=== PATIENT | female | born 1950 | race Caucasian/White ===

== ENCOUNTER 2019-08-15 14:15 | Inpatient (IN) | payer OTHER, MEDICAID ==
[~2019-08-15] VITALS: Ht 157.5 cm; Wt 132.9 kg
--- NOTE | 2019-08-15 14:20 | NUR ---
Patient to ER bed 02 to gown for evaluation. Side rails up.
--- NOTE | 2019-08-15 14:22 | NUR ---
Patient brought in by ambulance to the ED due to SOB and chest pain that started today. Patient is from [facility]. Denied any fevers, chills, nausea, or vomiting. Patient is alert and oriented x2, speaking in full sentences. VSS, pain level 5/10. Informed of approximate wait time. Instructed to notify ED staff for any changes in condition or worsening of symptoms. Patient verbalized understanding.
[2019-08-15 14:23] VITALS: BP_SYST 123
--- NOTE | 2019-08-15 14:26 | NUR ---
ER Dr. Fairchild at bedside examining patient.
[2019-08-15] MEDS ORDERED: LORazepam 2 MG/ML VIAL IVP ONE (14:30)
--- NOTE | 2019-08-15 14:42 | NUR ---
RT at bedside administering breathing treatment as ordered by Dr. Fairchild. Patient tolerated the treatment well.
[2019-08-15] MEDS ORDERED: FAMO20TA8 PO (14:50)
[2019-08-15] MEDS ORDERED: DILT300C54 PO (14:50)
[2019-08-15] MEDS ORDERED: LORA10TA7 PO (14:50)
[2019-08-15] MEDS ORDERED: SSREG SUBCUT (14:50)
[2019-08-15] MEDS ORDERED: APIX5TAB4 PO (14:50)
[2019-08-15] MEDS ORDERED: DEXT30DR6 EACH EYE (14:50)
[2019-08-15] MEDS ORDERED: DOCU-144 PO (14:50)
[2019-08-15] MEDS ORDERED: INSU100I26 SQ (14:50)
[2019-08-15] MEDS ORDERED: BACI1CAP6 PO (14:50)
[2019-08-15] MEDS ORDERED: ALBU2.5V7 INH (14:50)
[2019-08-15] MEDS ORDERED: MOM PO (14:50)
[2019-08-15] MEDS ORDERED: FURO-150 PO (14:50)
[2019-08-15] MEDS ORDERED: ASPI-1153 PO (14:50)
[2019-08-15] MEDS ORDERED: MAGN400T10 PO (14:50)
--- NOTE | 2019-08-15 14:55 | NUR ---
# 20 gauge angiocath placed to RAC. Use of asceptic technique. Opsite placed over site. Blood return noted. Blood for lab drawn from site. Flushed with 10 cc of normal saline. No evidence of infiltration noted. Patient tolerated well.
--- NOTE | 2019-08-15 15:00 | NUR ---
X-ray tech at bedside as ordered by Dr. Fairchild. Patient tolerated the procedure well.
--- NOTE | 2019-08-15 15:10 | NUR ---
MRSA swabbed and dropped off at the lab.
[2019-08-15] MEDS ORDERED: MORPHINE 2 MG/ML INJ. SYRINGE IVP ONE (15:15)
[2019-08-15] MEDS ORDERED: ONDANSETRON HCL 4 MG/2 ML VIAL IVP ONE (15:15)
--- NOTE | 2019-08-15 15:15 | NUR ---
Administered Ativan IVP as ordered by Dr. Fairchild. Patient tolerated the medication well. See eMAR for details.
[2019-08-15 15:28] LABS: BASOPHILS # (AUTO) 0.1 K/uL (0.0-0.2); LYMPHOCYTES # (AUTO) 0.9 K/uL (1.0-5.5); MEAN CORPUSCULAR VOLUME 79 fL (79.0-98.0); MONOCYTES # (AUTO) 0.9 K/uL (0.0-1.0)
[2019-08-15 15:35] LABS: BASOPHILS % (AUTO) 0.7 % (0.0-2.0); EOSINOPHILS % (AUTO) 0.2 % (0.0-4.0); LYMPHOCYTES % (AUTO) 8.3 % (20.5-51.5); MEAN CORPUSCULAR HEMOGLOBIN 23 pg (27-31); MEAN CORPUSCULAR HGB CONC 29 % (32-36); MONOCYTES % (AUTO) 7.8 % (1.7-9.3); PLATELET COUNT (AUTO) 201 K/uL (130-430); RED BLOOD CELL COUNT(AUTO) 2.25 MIL/uL (4.2-6.2); RED CELL DISTRIBUTION WIDTH 22.7 % (9.0-15.0); WHITE BLOOD COUNT (AUTO) 10.9 K/uL (4.8-10.8)
--- NOTE | 2019-08-15 15:35 | NUR ---
Administered Morphine Sulfate and Zofran IVP as ordered by Dr. Fairchild. Patient tolerated the medication well. See eMAR for details.
[2019-08-15 15:36] LABS: CALCIUM 8.5 mg/dL (8.4-11.0); CREATININE 1.58 mg/dL (0.55-1.30); POTASSIUM 4.2 mmol/L (3.5-5.1)
[2019-08-15 15:39] LABS: INR 1.4 (0.8-1.2); PROTHROMBIN TIME 13.6 SECS (9.5-12.5)
[2019-08-15 15:42] LABS: ALBUMIN 2.5 g/dL (3.4-4.8); TOTAL BILIRUBIN 1.1 mg/dL (0.0-1.0)
[2019-08-15 15:43] LABS: HEMOGLOBIN 5.1 g/dL (12.0-16.0)
[2019-08-15 15:44] LABS: HEMATOCRIT 17.8 % (36-48)
--- NOTE | 2019-08-15 15:57 | NUR ---
Dr. Fairchild at bedside collecting stool specimen for guiac test.
[2019-08-15] MEDS ORDERED: PIPERACILLIN/TAZO 3.375 GM in NS 50 ML IV ONE (16:00)
[2019-08-15] MEDS ORDERED: NACL 0.9% 2,000 ML IV ONE (16:00)
[2019-08-15] MEDS ORDERED: PIPERACILLIN/TAZOBACTAM 3.375 GM/VIAL (ZOSYN) IV ONE (16:34)
--- NOTE | 2019-08-15 16:55 | NUR ---
Consent obtained over the phone from Niurka Matos (sister). Blood requistion form dropped off at the lab.
[2019-08-15] MEDS ORDERED: LORazepam 2 MG/ML VIAL IVP PRN (17:15)
[2019-08-15] MEDS ORDERED: MAGNESIUM SULFATE 50 ML IV PRN (17:15)
[2019-08-15] MEDS ORDERED: POTASSIUM CHLORIDE 20 MEQ TAB.PRT.SR PO PRN (17:15)
[2019-08-15] MEDS ORDERED: ALBUTEROL SULFATE 0.083% 2.5 MG/3 ML VIAL.NEB INH PRN (17:15)
[2019-08-15] MEDS ORDERED: ACETAMINOPHEN 325 MG TABLET PO PRN (17:15)
[2019-08-15] MEDS ORDERED: D5NS 1,000 ML IV SCH ×2 (17:15→17:30)
[2019-08-15] MEDS ORDERED: ONDANSETRON HCL 4 MG/2 ML VIAL IVP PRN (17:15)
[2019-08-15] MEDS ORDERED: MORPHINE 2 MG/ML INJ. SYRINGE IVP PRN ×2 (17:15)
[2019-08-15] MEDS ORDERED: ZOLPIDEM TARTRATE 5 MG TABLET PO PRN (17:15)
[2019-08-15] MEDS ORDERED: DOCUSATE SODIUM 100 MG CAPSULE PO PRN (17:15)
[2019-08-15] MEDS ORDERED: PIPERACILLIN/TAZOBACTAM 2.25 GM in NS 50 ML IV SCH (17:15)
--- NOTE | 2019-08-15 17:15 | NUR ---
Dr. Ayala ([employer]) at bedside.
[2019-08-15] MEDS: FUROSEMIDE 40 MG/4 ML VIAL IVP SCH (17:30)
--- NOTE | 2019-08-15 17:30 | NUR ---
rECEIVED ADMITTING ORDERS FROM DR. REMY.
--- NOTE | 2019-08-15 17:30 | NUR ---
# 16 FR In and Out catheter with use of sterile technique. Immediate return of 120 ml clear yellow with foul-smelling odor urine noted. Urine sample collected and sent to lab. Pt tolerated procedure well. Patient unable to toilet self.
[2019-08-15] MEDS ORDERED: NACL 0.9% 1,000 ML IV SCH (17:41)
[2019-08-15] MEDS ORDERED: PIPERACILLIN/TAZO 3.375/DEX-IS 50 ML IV SCH (18:00)
--- NOTE | 2019-08-15 18:30 | NUR ---
Started blood transfusion. VS: 122/46 - 121, RR 23, T 97.5.
[2019-08-15 18:57] VITALS: BP_SYST 162
--- NOTE | 2019-08-15 19:11 | NUR ---
ER Dr. Monaco at bedside examining patient.
--- NOTE | 2019-08-15 19:25 | NUR ---
Report given and care transferred to ESDRAS Ness.
--- NOTE | 2019-08-15 20:45 | NUR ---
# 16 FR Pope catheter with use of sterile technique. Immediate return of 150 cc o yellow urine noted. Bedside drainage bag placed below level of bladder. Pt tolerated procedure well.
[2019-08-15] MEDS ORDERED: DILTIAZEM HCL 300 MG CAP.SR.24H PO SCH (21:00)
[2019-08-15] MEDS ORDERED: VANCOMYCIN HCL 1 GM/NS PREMIX 250 ML IV ONE (21:00)
[2019-08-15] MEDS ORDERED: MUPIROCIN 2% TOPICAL OINTMENT 22 GM TP ONE (21:00)
--- NOTE | 2019-08-15 21:15 | NUR ---
Called ICU for bed placement.
--- NOTE | 2019-08-15 21:30 | NUR ---
Sister at bedside.
--- NOTE | 2019-08-15 22:10 | NUR ---
RT at bedside suctioning pt.
--- NOTE | 2019-08-15 22:40 | NUR ---
Transfer to ICU bed 3 via ACLS protocol. Licensed nurse present. IV present no signs or symptoms of infiltration.
[2019-08-15 23:10] VITALS: BP_SYST 147
--- NOTE | 2019-08-15 23:10 | NUR ---
Admission Note Pt in bed alert, but lethargic. Able to open eyes to voice, but unable to speak or follow commands. Pt uncontrolled A-fib on the monitor. Trach to vent. AC 20, 400, 40%. +6. Pt tolerating well. Agonal breathing noted. RAC 20g and RFA22g noted. IV sites C/D/I. No s/s of infiltration noted. Pt has hamilton catheter in place draining urine to gravity. Safety rounds completed. No family at bedside. Will continue to monitor.
[2019-08-15] MEDS: INSULIN GLARGINE 100 UNITS/ML 10 ML VIAL SUBCUT SCH (23:30)
[2019-08-15] MEDS: DOCUSATE SODIUM 100 MG CAPSULE PO SCH (23:30)
--- NOTE | 2019-08-15 23:35 | NUR ---
CHG CHG bath given and linens changed. Pt tolerated well. Will continue to monitor.
[2019-08-16] VITALS (28 sets, daily range): BP systolic 65–198
[2019-08-16] MEDS ORDERED: VANCOMYCIN HCL 1000 MG/VIAL IV ONE (00:12)
[2019-08-16] MEDS ORDERED: PIPERACILLIN/TAZOBACTAM 2.25 GM VIAL IV ONE (00:13)
[2019-08-16] MEDS ORDERED: MORPHINE 4 MG/ML INJ. SYRINGE ONE (00:28)
[2019-08-16] MEDS: PIPERACILLIN/TAZOBACTAM 2.25 GM in NS 50 ML IV SCH ×5 (00:36→21:16)
--- NOTE | 2019-08-16 02:00 | NUR ---
BT Initiation: Consent signed per agreeing to administration of blood. Blood has been type and crossmatched. Blood sent from blood bank. Information on unit of blood checked against patient wristband at bedside by two nurses. All information matches. Patient or responsible green party informed of potential complications associated with blood transfusion. Informed of possible transfusion reaction symptoms. Aware of need to notify nurse at once of itching, shortness of breath, flushing, feeling of impending doom, or other symptoms not previously present. Vital signs taken within 5 minutes prior to initiation of transfusion. RN will remain with patient for first 15 minutes of transfusion at which time vital signs will be re-assessed.
[2019-08-16] MEDS ORDERED: METOPROLOL TARTRATE 5 MG/5 ML VIAL IVP PRN (02:30)
[2019-08-16] MEDS ORDERED: NOREPINEPHRINE 4 MG/4 ML VIAL IV ONE ×2 (02:42→23:36)
[2019-08-16] MEDS: NOREPINEPHRINE BITARTRATE 4 MG in NS 246 ML IV PRN ×5 (02:53→21:17)
--- NOTE | 2019-08-16 02:59 | NUR ---
RN Rounds Pt in bed, lethargic, Blood infusing, tolerating well. Pt started on Levophed drip @2mcg/min for lowered BP. Will continue to monitor.
--- NOTE | 2019-08-16 04:28 | NUR ---
BT Done BT finished infusing, Pt tolerated well. No s/s of reaction noted. Pt VSS. BP in the 90s. Levophed @6mcg/min. Pt set to have one more unit of pRBCs transfused as ordered. Will continue to monitor.
[2019-08-16] MEDS: DILTIAZEM HCL 30 MG TABLET PO SCH ×4 (06:00→23:33)
[2019-08-16 06:16] LABS: HEMATOCRIT 27.8 % (36-48); HEMOGLOBIN 7.9 g/dL (12.0-16.0); MEAN CORPUSCULAR HEMOGLOBIN 25 pg (27-31); MEAN CORPUSCULAR HGB CONC 29 % (32-36); MEAN CORPUSCULAR VOLUME 86 fL (79.0-98.0); PLATELET COUNT (AUTO) 188 K/uL (130-430); RED BLOOD CELL COUNT(AUTO) 3.22 MIL/uL (4.2-6.2); WHITE BLOOD COUNT (AUTO) 29.6 K/uL (4.8-10.8)
--- NOTE | 2019-08-16 06:50 | NUR ---
BT INITIATION: Consent signed per Sister via Phone consent agreeing to administration of blood. Blood has been type and crossmatched. Blood sent from blood bank. Information on unit of blood checked against patient wristband at bedside by two nurses. All information matches. Patient or responsible constitution party informed of potential complications associated with blood transfusion. Informed of possible transfusion reaction symptoms. Aware of need to notify nurse at once of itching, shortness of breath, flushing, feeling of impending doom, or other symptoms not previously present. Vital signs taken within 5 minutes prior to initiation of transfusion. RN will remain with patient for first 15 minutes of transfusion at which time vital signs will be re-assessed.
[2019-08-16 06:59] LABS: INR 1.6 (0.8-1.2); PROTHROMBIN TIME 15.6 SECS (9.5-12.5)
--- NOTE | 2019-08-16 07:25 | NUR ---
Endorsement Report given to oncoming RN at bedside via SBAR approach. Patient safety rounds completed. Levophed infusing @10mcg/min. No acute distress noted.
[2019-08-16 08:20] LABS: TOTAL IRON BIND. CAPACITY 328 ug/dL (250-450)
[2019-08-16] MEDS ORDERED: VANCOMYCIN HCL 1,500 MG in NS 500 ML IV ONE (08:30)
--- NOTE | 2019-08-16 08:35 | NUR ---
RT NOTES- VT 450 INCREASED TIDAL VOLUME TO 450ml AT THIS TIME PER DR. LAWTON. RN MUNIR AND ESDRAS MCKEON MADE AWARE. WILL CONTINUE MONITORING.
[2019-08-16 08:45] LABS: POTASSIUM 4.7 mmol/L (3.5-5.1); SODIUM SERUM 129 mmol/L (136-145)
[2019-08-16 08:46] LABS: ANION GAP 19 (5-15); CHLORIDE 95 mmol/L (98-107)
[2019-08-16 08:47] LABS: CALCIUM 8.7 mg/dL (8.4-11.0); CREATININE 2.17 mg/dL (0.55-1.30); GFR AFRICAN AMERICAN 29 mL/min (>90); GLUCOSE 130 mg/dL (70-99); UREA NITROGEN, BLOOD 24 mg/dL (8-21)
[2019-08-16 08:48] LABS: ALANINE AMINOTRANSFERASE 37 U/L (12-78); ALBUMIN 2.5 g/dL (3.4-4.8); ASPARTATE AMINOTRANSFERASE 102 U/L (10-37); TOTAL BILIRUBIN 2.2 mg/dL (0.0-1.0)
[2019-08-16 08:49] LABS: CHOLESTEROL 73 mg/dL (<200); HDL CHOLESTEROL 16 mg/dL (>55); LDL CHOLESTEROL 49 mg/dL (<100); TRIGLYCERIDES 83 mg/dL (30-150)
[2019-08-16] MEDS ORDERED: FUROSEMIDE 20 MG TABLET PO SCH (09:00)
[2019-08-16] MEDS: MUPIROCIN 2% TOPICAL OINTMENT 22 GM NS SCH ×2 (09:00→21:00)
[2019-08-16] MEDS: DOCUSATE SODIUM 100 MG CAPSULE PO SCH ×2 (09:00→21:00)
[2019-08-16 09:08] LABS: INR 2.1 (0.8-1.2); PROTHROMBIN TIME 20.7 SECS (9.5-12.5)
[2019-08-16] MEDS: PANTOPRAZOLE SODIUM 40 MG/VIAL (PROTONIX) IVP SCH ×2 (09:29→21:16)
[2019-08-16] MEDS: FUROSEMIDE 40 MG/4 ML VIAL IVP SCH (09:30)
[2019-08-16 09:41] LABS: BAND % (MANUAL) 7 % (0-6); LYMPHOCYTES % (MANUAL) 4 % (20-46)
[2019-08-16 09:42] LABS: BASOPHILS % (MANUAL) 0 % (0-2); EOSINOPHILS % (MANUAL) 0 % (0-7); MONOCYTES % (MANUAL) 6 % (0-11)
[2019-08-16] MEDS ORDERED: INSULIN REGULAR, HUMAN 100 UNITS/ML, 10 ML VIAL (humuLIN R) SUBCUT PRN (09:45)
[2019-08-16] MEDS ORDERED: HYDROCORTISONE SOD SUCC 100 MG/2 ML VIAL IVP ONE (09:45)
--- NOTE | 2019-08-16 10:14 | NUR ---
Nutrition Update Daniel Scale 12 noted. Pt admitted for aspiration pneumonia. Diet: [facility] BMI: 53.5 kg/m2 RD to follow per nutrition care standards.
[2019-08-16 12:01] LABS: THYROID STIMULATING HORMONE 1.02 uIu/mL (0.36-3.74)
--- NOTE | 2019-08-16 12:17 | NUR ---
SS NOTES: SANITATION MANAGER was referred by CM to see patient for DCP/SSA. Demographic information confirmed and updated. SANITATION MANAGER met patient who was unable to be interviewed but sister (JASWINDER Bah ([phone]) was at bedside. Per Niurka, pt has been a resident at [facility] for 7-8 years now and is dependent on all her ADL's. Niurka stated pt has an advanced directive and she is the surrogate decision maker on healthcare and for her finances. Pt does not have a history of mental health but has a long history of alcohol intake. Pt has two children, one and the other one Luis Brody is in long term. When discharged, family would want pt to go back to [facility]. No SS needs identified at this time, but will remain available for support. SANITATION MANAGER provided family with SS call card.
--- NOTE | 2019-08-16 13:47 | NUR ---
Dietitian Recommendations * Recommend NPO * Consider swallow eval if/when medically appropriate LP, RD Please refer to Nutrition Assessment for details. Addendum: 08/16/19 at [address] Amended: Links added.
--- NOTE | 2019-08-16 15:35 | NUR ---
RT NOTES- PRESSURE CONTROL PT PLACED ON PC RATE 20, PIP 32, PEEP 6, 40%FIO2 PER DR. LAWTON. RN MADE AWARE. WILL CONTINUE MONITORING.
--- NOTE | 2019-08-16 16:27 | NUR ---
CONSULT NEPHRO. CONSULTING MD: DR. NICHOLAS DIALED: [phone] SPOKE TO: DEVIN ORDERED BY: DR. REMY
[2019-08-16] MEDS ORDERED: SODIUM BICARBONATE 8.4% JECT 50 MEQ/50 ML SYRINGE IVP ONE ×2 (17:00→17:15)
[2019-08-16] MEDS ORDERED: LEVOFLOXACIN 250 MG/D5W 50 ML IV SCH (17:00)
--- NOTE | 2019-08-16 17:00 | NUR ---
RT NOTES- AC 20 CHANGE VENT SETTING BACK AC20, 450, +6, 40%FIO2 PER DR. LAWTON AT THIS TIME. ESDRAS AMARAL AND ESDRAS MCKEON MADE AWARE. WILL CONTINUE MONITORING.
[2019-08-16] MEDS ORDERED: SODIUM BICARBONATE 8.4% JECT 50 MEQ/50 ML SYRINGE ONE ×2 (17:16→17:26)
[2019-08-16] MEDS ORDERED: NACL 0.9% 1,000 ML IV ONE (17:45)
[2019-08-16 17:46] LABS: FIBRINOGEN 256 mg/dL (200-400)
[2019-08-16] MEDS: SODIUM BICARBONATE 8.4% VIAL 150 MEQ in D5W 1,000 ML IV SCH (18:57)
[2019-08-16] MEDS: PHENYLEPHRINE HCL 30 MG in NS 247 ML IV PRN ×4 (18:59→23:32)
--- NOTE | 2019-08-16 19:00 | NUR ---
THE PTS STATUS WAS VERY TENUOUS THROUGHOUT THE DAY. SHE WAS NOT ON SEDATION AND OBTUNDED. SHE WAS REQUIRING LEVOPHED FOR BP SUPPORT THROUGHOUT THE DAY. SHE ACIDOTIC (GAVE BICARB) AND LATER IN THE DAY WE DID GET A PICC LINE PLACED LATE IN THE DAY. SHE WAS SO DIFFICULT TO GET A NBP - WE TRIED VARIOUS WAYS AND LOCATIONS FOR ALMOST AN HOUR , TO NO AVAIL. WE DID CHECK HER PULSE BY DOPPLER AND IT WAS LOUD AND CLEAR. (STILL NO NBP) WE STARTED NEOSYNEPHRINE WELL. SHE IS WARM AND MOVES HER UPPER EXTREMITES ABOUT PERIODICALLY. SEE ORDERS.
--- NOTE | 2019-08-16 19:30 | NUR ---
PM ASSESSMENT REPORT RECEIVED FROM MUNIR DEWITT. PT RECEIVED IN BED WITH EYES CLOSED, NON RESPONSIVE. PT TRACH TO VENT, SETTINGS: AC 20, TV 450, FIO2 40%, PEEP 6. A-FIB ON MONITOR. ETELVINA PICC IN PLACE INFUSING LEVOPHED DRIP, NEOSYNEPHRINE, AND IVF. RAC 20G INFUSING IVF WITH SODIUM BICARB. BOTH IV SITES PATENT AND INTACT. CASTRO CATH IN PLACE DRAINING BRO URINE TO GRAVITY. HOB ELEVATED, BED IN LOWEST POSITION, CALL LIGHT IN REACH. WILL CONTINUE TO MONITOR PT.
[2019-08-16] MEDS ORDERED: PHENYLEPHRINE HCL 10 MG/ML VIAL (NEOSYNEPHRINE) ONE (20:30)
[2019-08-16] MEDS: INSULIN GLARGINE 100 UNITS/ML 10 ML VIAL SUBCUT SCH (21:00)
[2019-08-16] MEDS: metroNIDAZOLE 500 mg/NS 100 ML IV SCH (21:16)
[2019-08-16] MEDS: HYDROCORTISONE SOD SUCC 100 MG/2 ML VIAL IVP SCH (21:17)
--- NOTE | 2019-08-16 21:20 | NUR ---
PRIEST SHORT AT BEDSIDE FOR PRAYER AT THIS TIME. WILL CONTINUE TO MONITOR PT.
--- NOTE | 2019-08-16 22:54 | NUR ---
DR. JERED TRAYLOR UPDATED ON PT CONDITION AT THIS TIME. MADE AWARE THAT PT ON MAX DOSE OF LEVOPHED AND NEOSYNEPHRINE AT THIS TIME WITH BP REMAINING IN LOW 70s AND FLUCTUATING. PER OK TO DOUBLE CONCENTRATE LEVOPHED DRIP, OTHERWISE NO NEW ORDERS RECEIVED. WILL CONTINUE TO MONITOR PT. Addendum: 08/17/19 at 0127 by María Campbell RN MADE AWARE THAT BP IS DIFFICULT TO OBTAIN, PER MD NO ADDITIONAL ORDERS. WILL CONTINUE TO MONITOR PT.
[2019-08-16] MEDS: NOREPINEPHRINE BITARTRATE 8 MG in NS 242 ML IV PRN (23:31)
[2019-08-17] VITALS: BP_SYST 107
[2019-08-17] MEDS ORDERED: PHENYLEPHRINE HCL 10 MG/ML VIAL (NEOSYNEPHRINE) ONE ×6 (00:58→07:14)
[2019-08-17 01:00] VITALS: BP_SYST 148
[2019-08-17] MEDS: PHENYLEPHRINE HCL 30 MG in NS 247 ML IV PRN ×3 (01:04→05:25)
[2019-08-17 02:00] VITALS: BP_SYST 112
[2019-08-17] MEDS: SODIUM BICARBONATE 8.4% VIAL 150 MEQ in D5W 1,000 ML IV SCH ×2 (02:06→08:57)
--- NOTE | 2019-08-17 03:45 | NUR ---
VENT CHANGES FIO2 INCREASED TO 100% BY RT AT THIS TIME. WILL CONTINUE TO MONITOR PT.
[2019-08-17] MEDS: PIPERACILLIN/TAZOBACTAM 2.25 GM in NS 50 ML IV SCH (03:57)
[2019-08-17 05:00] VITALS: BP_SYST 196
[2019-08-17] MEDS: NOREPINEPHRINE BITARTRATE 8 MG in NS 242 ML IV PRN (05:26)
[2019-08-17] MEDS: DILTIAZEM HCL 30 MG TABLET PO SCH (06:00)
[2019-08-17] MEDS: metroNIDAZOLE 500 mg/NS 100 ML IV SCH (06:10)
[2019-08-17 06:15] LABS: CALCIUM 7.7 mg/dL (8.4-11.0); CREATININE 2.89 mg/dL (0.55-1.30); POTASSIUM 5.1 mmol/L (3.5-5.1)
[2019-08-17] MEDS ORDERED: DEXTROSE 50% JECT 50 ML DISP.SYRIN ONE (06:24)
--- NOTE | 2019-08-17 06:30 | NUR ---
BLOOD GLUCOSE BLOOD GLUCOSE 56. D 50 GIVEN PER PROTOCOL. BG RECHECKED AFTER 15 MINS AND IS 120. WILL CONTINUE TO MONITOR PT.
[2019-08-17 06:40] LABS: CORRECTED WHITE BLOOD COUNT 25.2 K/uL (4.5-11.0); RED BLOOD CELL COUNT(AUTO) 2.72 MIL/uL (4.2-6.2); WHITE BLOOD COUNT (AUTO) 23.2 K/uL (4.8-10.8)
[2019-08-17 06:42] LABS: HEMATOCRIT 25.2 % (36-48); HEMOGLOBIN 6.8 g/dL (12.0-16.0); MEAN CORPUSCULAR HEMOGLOBIN 25 pg (27-31); MEAN CORPUSCULAR HGB CONC 27 % (32-36); MEAN CORPUSCULAR VOLUME 93 fL (79.0-98.0)
[2019-08-17 06:43] LABS: BASOPHILS # (AUTO) 0.1 K/uL (0.0-0.2); BASOPHILS % (AUTO) 0.6 % (0.0-2.0); EOSINOPHILS # (AUTO) 0.5 K/uL (0.0-0.4); EOSINOPHILS % (AUTO) 2.3 % (0.0-4.0); LYMPHOCYTES # (AUTO) 1.1 K/uL (1.0-5.5); LYMPHOCYTES % (AUTO) 4.9 % (20.5-51.5); MONOCYTES # (AUTO) 1.7 K/uL (0.0-1.0); MONOCYTES % (AUTO) 7.3 % (1.7-9.3); NEUTROPHILS # (AUTO) 19.7 K/uL (1.8-7.7); NEUTROPHILS % (AUTO) 84.9 % (40.0-70.0); PLATELET COUNT (AUTO) 204 K/uL (130-430)
--- NOTE | 2019-08-17 06:46 | NUR ---
DR. SANDRITA TRAYLOR MADE AWARE OF PT HGB 6.8 AND PT IS POSITIVE FOR INFLUENZA A. PER MD TRANSFUSE 1 UNIT PRBCs, INSERT NGT, AND PLACE PT ON TAMIFLU 75 MG BID FOR 5 DAYS. WILL CARRY OUT ORDERED.
--- NOTE | 2019-08-17 07:05 | NUR ---
DR. ROSEMARY TRAYLOR AT BEDSIDE TO EVALUATE PT. NO NEW ORDERS RECEIVED AT THIS TIME. WILL CONTINUE TO MONITOR PT.
--- NOTE | 2019-08-17 07:29 | NUR ---
ENDORSEMENT BEDSIDE REPORT GIVEN TO [facility] RN USING SBAR APPROACH.
[2019-08-17 07:30] VITALS: BP_SYST 172
--- NOTE | 2019-08-17 07:30 | NUR ---
AM NOTES: REPORT RECEIVED FROM ELIO. PT RECEIVED IN BED WITH EYES CLOSED, NON RESPONSIVE.LEFT EYE BLIND, RIGHT FIXED, DILATED. PT TRACH TO VENT, SETTINGS: AC 20, TV 450, FIO2 100%, PEEP 6. A-FIB ON MONITOR.UNABLE TO GET BLOOD PRESSURE READING. ETELVINA PICC IN PLACE INFUSING LEVOPHED DRIP 30 MCG/KG/MIN, NEOSYNEPHRINE @ 360ML/HR, . RAC 20G INFUSING IVF WITH SODIUM BICARB@ 150ML/HR .RIGHT FOREARM #22. SALINE LOCK. PATENT,INTACT. CASTRO CATH IN PLACE DRAINING BRO COLOR AT THE BAG TO GRAVITY. HOB ELEVATED, BED IN LOWEST POSITION, BE IS LOW AND LOCK POSITION. WILL CONTINUE TO MONITOR PT.
--- NOTE | 2019-08-17 07:49 | NUR ---
CARDIO CONSULT: SEEN BY DR. POLANCO UPDATED ABOUT PATIENT CURRENT CONDITION. STATED WILL PLACE ORDER FOR ALBUMIN.
[2019-08-17] MEDS ORDERED: ALBUMIN HUMAN 25% 50 ML IV SCH (08:00)
--- NOTE | 2019-08-17 08:00 | NUR ---
pulmo consult: seen by DR. Ayala, updated patient current condition aware about the ABG result.
[2019-08-17] MEDS ORDERED: NOREPINEPHRINE 4 MG/4 ML VIAL IV ONE (08:34)
--- NOTE | 2019-08-17 08:38 | NUR ---
INFORMED MD'S PATIENT : DR. REMY SPOKE TO GINNY DIALED [phone] DR. NICHOLAS SPOKE TO GLORY DIALED [phone] PAIGE SPOKE TO GLORY DIALED [phone] DR. RILEY SPOKE TO GLORY DIALED [phone] DR. POLANCO SPOKE TO GLORY DIALED [phone]
--- NOTE | 2019-08-17 08:57 | NUR ---
0815-heart rate drop to 50bpm. primary nurse and respiratory therapies at the bedside checking and doing intervention.pt on maximum vasopressor. 0818 patient become pulseless, code blue called. 0819 DR. Dell Ayala pronounced time of . MD Ayala notified family- sister ( Niurka Matos) [phone]. [employer] notified case # [id number], s/w betty stated not eligible for organ donation.
[2019-08-17] MEDS ORDERED: OSELTAMIVIR PHOSPHATE 75 MG CAPSULE PO SCH (09:00)
[2019-08-17] MEDS: DOCUSATE SODIUM 100 MG CAPSULE PO SCH (09:00)
[2019-08-17] MEDS: FUROSEMIDE 40 MG/4 ML VIAL IVP SCH (09:00)
[2019-08-17] MEDS: MUPIROCIN 2% TOPICAL OINTMENT 22 GM NS SCH (09:00)
[2019-08-17] MEDS: PANTOPRAZOLE SODIUM 40 MG/VIAL (PROTONIX) IVP SCH (09:00)
[2019-08-17] MEDS: HYDROCORTISONE SOD SUCC 100 MG/2 ML VIAL IVP SCH (09:00)
--- NOTE | 2019-08-17 10:45 | NUR ---
POST MORTEM CARE PROVIDED. NAME TAG PLACED OUTSIDE BAG AND PT TOE. 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
== END 2019-08-17 08:19 | disposition expired | DRG 871 ==
LOC: SED 14:15 → SIC 17:41
PROVIDERS: ADMIT General Practice; ATTEND General Practice
PROC: 30233N1 Transfusion of Nonautologous Red Blood Cells into Peripheral Vein, Percutaneous Approach (ICD-10-PCS; principal; 2019-08-15)
PROC: 5A1945Z Respiratory Ventilation, 24-96 Consecutive Hours (ICD-10-PCS; 2019-08-15)
PROC: 02HV33Z Insertion of Infusion Device into Superior Vena Cava, Percutaneous Approach (ICD-10-PCS; 2019-08-15)
PROC: B548ZZA Ultrasonography of Superior Vena Cava, Guidance (ICD-10-PCS; 2019-08-15)
DX: A41.9 Sepsis, unspecified organism (principal); J15.9 Unspecified bacterial pneumonia; J69.0 Pneumonitis due to inhalation of food and vomit; J96.21 Acute and chronic respiratory failure with hypoxia; R65.21 Severe sepsis with septic shock; N17.0 Acute kidney failure with tubular necrosis; E43 Unspecified severe protein-calorie malnutrition; K27.4 Chronic or unspecified peptic ulcer, site unspecified, with hemorrhage; E66.2 Morbid (severe) obesity with alveolar hypoventilation; I48.20 Chronic atrial fibrillation, unspecified; E87.2 Acidosis; J44.0 Chronic obstructive pulmonary disease with (acute) lower respiratory infection; Z99.11 Dependence on respirator [ventilator] status; Z68.43 Body mass index [BMI] 50.0-59.9, adult; J91.8 Pleural effusion in other conditions classified elsewhere; N18.4 Chronic kidney disease, stage 4 (severe); K21.9 Gastro-esophageal reflux disease without esophagitis; D64.9 Anemia, unspecified; E11.22 Type 2 diabetes mellitus with diabetic chronic kidney disease; E11.42 Type 2 diabetes mellitus with diabetic polyneuropathy; I46.9 Cardiac arrest, cause unspecified; E11.65 Type 2 diabetes mellitus with hyperglycemia; D50.0 Iron deficiency anemia secondary to blood loss (chronic); I50.9 Heart failure, unspecified; Y95 Nosocomial condition; Z74.01 Bed confinement status; Z79.01 Long term (current) use of anticoagulants; Z79.4 Long term (current) use of insulin; Z87.891 Personal history of nicotine dependence; Z93.0 Tracheostomy status; Z79.82 Long term (current) use of aspirin; Z79.899 Other long term (current) drug therapy; Z91.19 Patient's noncompliance with other medical treatment and regimen
CPT/HCPCS: 36415; 36600; 71045; 80048; 80053; 80061; 82728; 82803-TC; 82962; 83036; 83540-TC; 83550-TC; 83605; 83735-TC; 83880; 84443-TC; 84484; 85007; 85025; 85027; 85379; 85384-TC; 85610-TC; 85730-TC; 86710; 86738; 86886; 86900; 86901; 86920; 87040-TC; 87070-TC; 87081; 87186-TC; 87205-TC; 93005; 93306; 94002; 94003; 94640; 96365; 96375; 99291; C1751; C9113; J1720; J1815; J1940; J1956; J2060; J2270; J2370; J2405; J2543; J3370; J3490; J7030; J7040; J7042; J7050; J7060; P9021